=== PATIENT | male | born 1980 | race Caucasian/White ===

== ENCOUNTER 2019-11-29 18:01 | Emergency (ER) | payer SELFPAY ==
[~2019-11-29] VITALS: Ht 170.2 cm; Wt 77.1 kg
[2019-11-29 18:10] VITALS: Ht 170.2 cm; Wt 77.1 kg
[2019-11-29 19:56] VITALS: BP 122/80
== END 2019-11-29 19:56 | disposition other institution (70) ==
LOC: ED 18:01
DX: S02.2XXA Fracture of nasal bones, initial encounter for closed fracture (principal); S01.21XA Laceration without foreign body of nose, initial encounter; Y04.8XXA Assault by other bodily force, initial encounter; Y93.89 Activity, other specified; Y92.89 Other specified places as the place of occurrence of the external cause; Y99.8 Other external cause status
CPT/HCPCS: 90715; Q0092

== ENCOUNTER 2019-11-29 18:01 | Emergency (ER) | payer OTHER | END 2019-11-29 19:56 | disposition other institution (70) | LOC: ED 18:01 | DX: Z02.89 Encounter for other administrative examinations (principal) ==